=== PATIENT | male | born 1990 | race Caucasian/White ===

== ENCOUNTER 2019-10-02 16:24 | Emergency (ER) | payer SELFPAY ==
[~2019-10-02] VITALS: Ht 182.9 cm; Wt 78.0 kg
[2019-10-02] MEDS ORDERED: SODIUM CHLORIDE FLUSH 10ML SYR IVF ONE (17:00)
[2019-10-02] MEDS ORDERED: ONDANSETRON 2MG/ML, 2ML IVPush ONE (17:00)
[2019-10-02] MEDS ORDERED: INFL100V IV (17:03)
[2019-10-02] MEDS ORDERED: ONDANSETRON 2MG/ML, 2ML ONE (17:11)
[2019-10-02] MEDS ORDERED: HYDROmorphone 1 MG/ML, 1ML INJ ONE ×4 (17:11→19:16)
[2019-10-02] MEDS: HYDROmorphone 2 MG/ML, 1ML IVPush PRN ×2 (17:17→17:50)
--- NOTE | 2019-10-02 17:23 | NUR ---
PT MEDICATED TO AUG, GOING TO CT. RESPIRATIONS EVEN AND UNLABORED.
[2019-10-02 17:28] LABS: BASOPHILS % (AUTO) 0 % (0-1); EOSINOPHILS # (AUTO) 0.02 x10^3/uL (0-0.4); EOSINOPHILS % (AUTO) 1 % (1-7); LYMPHOCYTES # (AUTO) 1.33 x10^3/uL (1-3.4); LYMPHOCYTES % (AUTO) 37 % (22-44); MD NO; MEAN CORPUSCULAR HEMOGLOBIN 20.2 pg (27.5-34.5); MEAN CORPUSCULAR HGB CONC 30.7 g/dL (33.2-36.2); MEAN CORPUSCULAR VOLUME 65.6 fL (81-97); MEAN PLATELET VOLUME 7.9 fL (7.4-10.4); MONOCYTES # (AUTO) 0.47 x10^3/uL (0.2-0.8); MONOCYTES % (AUTO) 13 % (2-9); NEUTROPHILS # (AUTO) 1.73 x10^3/uL (1.8-6.8); NEUTROPHILS % (AUTO) 49 % (42-75); PLATELET COUNT 347 x10^3/uL (130-400); RED BLOOD COUNT 4.33 x10^6/uL (4.38-5.82); RED CELL DISTRIBUTION WIDTH 19.5 % (9.4-14.8)
[2019-10-02 17:34] LABS: ALBUMIN 4.3 g/dL (3.4-5.0); ANION GAP 4 mmol/L (5-15); CALCIUM 8.8 mg/dL (8.5-10.1); CHLORIDE 106 mmol/L (98-107); CREATININE 1.22 mg/dL (0.7-1.3)
[2019-10-02 17:41] LABS: MICROSCOPIC INDICATED
[2019-10-02 17:53] LABS: CULTURE INDICATED? NO
--- NOTE | 2019-10-02 17:58 | NUR ---
PT STILL UNABLE TO HOLD STILL FOR CT AFTER MORE MEDS. RETURNED TO ROOM, WILL TRY AGAIN WHEN PATIENT ABLE TO TOLERATE
--- NOTE | 2019-10-02 18:56 | NUR ---
PT SITTING IN BED, AMBULATORY TO BATHROOM MULTIPLE TIMES, ROCKING BACK AND FORTH COMPLAINTS OF PAIN. RESPIRATIONS EVEN AND UNLABORED. REPORT GIVEN TO MAUREEN RODRIGUEZ.
[2019-10-02] MEDS ORDERED: HYDROmorphone 2 MG/ML, 1ML IVPush PRN (19:00)
--- NOTE | 2019-10-02 19:23 | NUR ---
NOTIFIED CT AFTER NEXT DOSE OF PAIN MED TO TAKE TO CT.
[2019-10-02] MEDS ORDERED: DIPHENHYDRAMINE 50 MG/ML, 1ML ONE (19:49)
[2019-10-02] MEDS ORDERED: DIPHENHYDRAMINE 50 MG/ML, 1ML IVPush ONE (20:00)
[2019-10-02 20:12] VITALS: BP 134/88
== END 2019-10-02 20:16 | disposition home or self-care (01) ==
LOC: ED 18:26
DX: N23 Unspecified renal colic (principal); R31.9 Hematuria, unspecified
CPT/HCPCS: 36415; 80048; 81001; 82040; 85025; 96374; 96375; 96376; 99284; J1170; J2405